=== PATIENT | male | born 1955 | race Caucasian/White ===

== ENCOUNTER → 2016-10-02 | Outpatient (CLI) | payer OTHER ==
[2016-10-02 10:31] LABS: Blood Urea Nitrogen 18 mg/dL (9-20); Non-African American GFR(MDRD) >60 (>60 ml/min/1.73 sqM)
--- NOTE | 2016-10-02 11:44 | CT ---
EXAMINATION TYPE: CT urogram wo/w con DATE OF EXAM: 10/02/2016 COMPARISON: NONE HISTORY: 61-year-old male complains of known renal stones and abnormal cytology results. TECHNIQUE: Contiguous axial scanning of the abdomen and pelvis performed without and with IV Contrast , patient injected with 100 mL of Omnipaque 300. Delayed images through the kidneys and bladder were obtained. Coronal/sagittal reconstructions performed. CT DLP: 3244 mGycm Automated exposure control for dose reduction was used. FINDINGS: The heart is normal size without pericardial effusion. Lung bases clear without pleural effusion. Scattered hypodense lesions within the liver too small for accurate CT characterization, likely cysts . Portal venous system is patent. No biliary ductal dilatation. There is a 1.2 cm hypodense lesion in the pancreatic head/uncinate process region. Gallbladder, adrenal glands, clean within normal limits. Within the left kidney, there is a 1.2 cm nonobstructive calculus in the upper pole. Both kidneys show numerous hypodense lesions, many of which are too small for accurate CT characteriz ation. On the right, the larger lesions measure up to 2.1 cm in the anterior midpole and 2.7 cm in the lower pole. These are compatible with cysts. On the left, the largest measures 2.2 cm posterolateral midpole with some thin layering calcification but otherwise with attenuation compatible with a cyst. No suspicious renal mass is identified. No hydronephrosis. There is symmetric excretion of contrast from both kidneys. No suspicious filling defects within the collecting systems or along the course of either ureter. There is opacification of the posterior three quarters of the bladder without suspicious filling defe ct identified No dilated small bowel, free fluid, or free air. The appendix is visualized. Mild stool in the right hemicolon. No pericolonic inflammatory change. No mesenteric or retroperitoneal lymphadenopathy. Few scattered prominent but nonenlarged mesenteric lymph nodes are noted measuring up to 5 mm. Mild to moderate atherosclerotic calcifications within the abdominal aorta with ectasia of the upper abdominal aorta at 2.5 cm. Moderate sized fatty umbilical hernia. Prostate gland mildly enlarged at 4.5 cm wide with central calcifications. No abnormal fluid collecti on in the pelvis or pelvic lymphadenopathy. Bones: Degenerative changes at the hips and within the mid to lower lumbar spine. No osseous destruct erickson process. IMPRESSION: 1. A 1.2 CM NONOBSTRUCTIVE LEFT UPPER POLE RENAL CALCULUS. NO HYDRONEPHROSIS ON EITHER SIDE. 2. BILATERAL HYPODENSE RENAL LESIONS. THE LARGEST ARE COMPATIBLE WITH CYSTS WITH A B[place]NIA[place] CLASS II C YST AT THE LEFT MIDPOLE. MANY OF THE HYPODENSE LESIONS ARE TOO SMALL FOR ACCURATE CT CHARACTERIZATIO N AND ALSO REPRESENT CYSTS. NO SUSPICIOUS RENAL LESION SEEN. 3. NO SUSPICIOUS FILLING DEFECT SEEN ALONG EITHER COLLECTING SYSTEM OR URETERS. 4. A VAGUE 1.2 CM HYPODENSITY IN THE PANCREATIC HEAD/UNCINATE PROCESS REGION MAY BE CYSTIC. RECOMMEND 6 MONTH FOLLOW-UP PANCREAS MRI TO FURTHER EVALUATE. 5. MODERATE-SIZED PERIUMBILICAL HERNIA AND MILD PROSTATOMEGALY.
== END | disposition home or self-care (01) ==
LOC: RADCTMAIN 09:58
PROVIDERS: ATTEND Urology
DX: N20.0 Calculus of kidney (principal); R82.99 Other abnormal findings in urine; K42.9 Umbilical hernia without obstruction or gangrene; N40.0 Benign prostatic hyperplasia without lower urinary tract symptoms; R93.3 Abnormal findings on diagnostic imaging of other parts of digestive tract
CPT/HCPCS: 82565; 84520; 74178; 74400; Q9967

== ENCOUNTER → 2016-10-09 | Outpatient (CLI) | payer OTHER ==
--- NOTE | 2016-10-09 15:35 | XR ---
EXAMINATION TYPE: XR KUB DATE OF EXAM: 10/09/2016 COMPARISON: CT 10/02/2016 HISTORY: Pain TECHNIQUE: One view abdominal series FINDINGS: Stable 1.2 cm left upper pole renal calculus. Punctate 1 mm calcification lower pole left kidney. Right kidney obscured by overlying bowel gas. Bowel gas pattern nonspecific with no obstruction. Hypertrophic change of the spine. No suspicious calcifications in the pelvis. IMPRESSION: 1. Stable left-sided nephrolithiasis.
== END | disposition home or self-care (01) ==
LOC: RADXRMAIN 15:02
PROVIDERS: ATTEND Urology
DX: N20.0 Calculus of kidney (principal)
CPT/HCPCS: 74000

== ENCOUNTER → 2018-07-08 | Outpatient (CLI) | payer OTHER ==
--- NOTE | 2018-07-08 08:22 | CT ---
EXAMINATION TYPE: CT urogram wo/w con DATE OF EXAM: 07/08/2018 COMPARISON: 10/02/2016 HISTORY: 63-year-old male Calculus of kidney. Left renal stone. TECHNIQUE: Contiguous axial scanning of the abdomen and pelvis performed without and with IV Contrast , patient injected with 100 mL of Isovue 300. Delayed images through the kidneys and bladder were obt ained. Coronal/sagittal reconstructions performed. 3-D reconstructions generated on a dedicated [employer] workstation. CT DLP: 2665 mGycm Automated exposure control for dose reduction was used. FINDINGS: Heart normal size without pericardial effusion. Lung bases clear without pleural effusion. Ectasia of the lower descending thoracic aorta at 2.9 cm. Scattered mild to moderate atherosclerotic calcifications throughout the abdominal aorta and iliac ar teries. A few scattered subcentimeter hypodensities within the liver are unchanged, suggestive of cysts. Port al venous system is patent. No biliary ductal dilatation. Gallbladder, adrenal glands, and spleen appear within normal limits. 7 mm hypodensity in the uncinate process of the pancreas appear smaller as compared to 1.2 cm, previo usly suggesting a benign etiology. 1.3 cm nonobstructive left upper pole renal calculus with an adjacent punctate 3 mm calculus. Numerous scattered subcentimeter hypodensities in both kidneys are essentially unchanged from 2017 gates ggesting benign cortical cysts. Larger cysts measuring 2.5 and 2.3 cm in the right mid and lower pole , respectively, are relatively stable. On the left, a 2.6 cm lateral to lower pole cyst is also relat ively stable and again contain small amount of layering calcification. No suspicious renal lesion seen. Symmetric uptake and excretion of contrast from both kidneys. No hydronephrosis. There is some tortuosity to the proximal ureters but no suspicious filling defects seen within the re nal collecting systems or along the ureters. The posterior half of the bladder opacifies with contrast on the 10 minute delays. No suspicious urot helial based lesion is seen. No mesenteric or retroperitoneal lymphadenopathy. No dilated small bowel, free fluid, or free air. Normal appendix. Mild stool burden. Prostate gland is mildly enlarged at 4.7 cm wide, measured at 4.5 cm, previously. Some central prosta tic calcifications are demonstrated. No abnormal fluid collection in the pelvis or pelvic lymphadenop athy. Bones: Advanced degenerative disc disease L4-L5. Facet arthropathy lower lumbar spine. IMPRESSION: 1. STABLE 1.3 CM LEFT UPPER POLE RENAL CALCULUS. THERE IS AN ADJACENT PUNCTATE CALCULUS WHICH IS ALSO NONOBSTRUCTIVE. 2. NUMEROUS BILATERAL BENIGN RENAL CYSTS ALL LARGELY STABLE FROM 2017. NO SUSPICIOUS RENAL LESION. 3. NO HYDRONEPHROSIS, OBSTRUCTIVE UROPATHY, or suspicious filling defect in the renal collecting syst em or ureters. 4. Moderate-sized fatty umbilical hernia and mild prostatomegaly (4.7 cm wide) again noted.
== END | disposition home or self-care (01) ==
LOC: RADCTMAIN 06:23
PROVIDERS: ATTEND Family Medicine
DX: N20.0 Calculus of kidney (principal); N28.1 Cyst of kidney, acquired; N40.0 Benign prostatic hyperplasia without lower urinary tract symptoms; K42.9 Umbilical hernia without obstruction or gangrene
CPT/HCPCS: 74178; 74400; Q9967

== ENCOUNTER → 2018-08-17 | Outpatient (CLI) | payer OTHER ==
[2018-08-17 17:34] LABS: Basophils % (A) 0 %; Eosinophils # (A) 0.1 k/uL (0-0.7); Eosinophils % (A) 2 %; HCT 42.1 % (39.0-53.0); HGB 14.3 gm/dL (13.0-17.5); Lymphocytes % (A) 26 %; MCH 30.1 pg (25.0-35.0); MCHC 34.1 g/dL (31.0-37.0); MCV 88.2 fL (80.0-100.0); Mean Platelet Volume 7.3; Monocytes # (A) 0.4 k/uL (0-1.0); Monocytes % (A) 5 %; Neutrophils # (A) 4.9 k/uL (1.3-7.7); Neutrophils % (A) 64 %; Platelet Count 243 k/uL (150-450); RBC 4.77 m/uL (4.30-5.90); RDW 14.1 % (11.5-15.5); WBC 7.6 k/uL (3.8-10.6)
[2018-08-17 17:36] LABS: Anion Gap 6 mmol/L; Blood Urea Nitrogen 19 mg/dL (9-20); Calcium 9.4 mg/dL (8.4-10.2); Carbon Dioxide 27 mmol/L (22-30); Chloride 105 mmol/L (98-107); Glucose 82 mg/dL (74-99); Potassium 4.1 mmol/L (3.5-5.1); Sodium 138 mmol/L (137-145)
== END | disposition home or self-care (01) ==
LOC: LABPAT 16:52
PROVIDERS: ATTEND Urology
DX: Z01.812 Encounter for preprocedural laboratory examination (principal); N20.0 Calculus of kidney
CPT/HCPCS: 36415; 80048; 85025

== ENCOUNTER → 2018-08-23 | Day surgery (SDC) | payer OTHER ==
[2018-08-19 17:21] VITALS: BMI 29.5
--- NOTE | 2018-08-21 08:48 | P.GSHP ---
History of Present Illness H&P Date: 08/19/18 Chief Complaint: Left flank pain The patient is a 63-year-old white male with a history of urolithiasis who presents with a two-month history of left flank and left lower abdominal discomfort. A computed tomography scan shows a 13 mm left upper pole renal calculus. He also has bilateral renal cysts. Treatment options for the renal calculus include observation, extracorporeal shockwave lithotripsy (ESWL), and ureteroscopy with laser lithotripsy. The pros and cons of each approach were reviewed in detail, and he has elected to undergo ESWL. - Constitutional Constitutional: Denies chills, Denies fever - Gastrointestinal Gastrointestinal: Reports nausea, Denies vomiting - Genitourinary (Female) Genitourinary: Reports flank pain, Reports hematuria, Reports kidney stones Past Medical History Past Medical History: Hyperlipidemia, Hypertension Additional Past Medical History / Comment(s): Kidney Stones, Testicular Cancer Past Surgical History: Hernia Repair Additional Past Surgical History / Comment(s): Colonoscopy, Cystoscopy, Left Orchiectomy Smoking Status: Unknown if ever smoked - Past Family History Mother Family Medical History: Cancer, Thyroid Disorder Medications and Allergies Home Medications Medication Instructions Recorded Confirmed Type Aspirin [Adult Low Dose Aspirin EC] 81 mg PO DAILY 08/19/18 08/19/18 History Lisinopril-Hctz 10-12.5 mg 1 tab PO DAILY 08/19/18 08/19/18 History [Zestoretic 10-12.5] Allergies Allergy/AdvReac Type Severity Reaction Status Date / Time No Known Allergies Allergy Verified 08/19/18 17:04 Surgical - Exam - General well developed, well nourished, no distress - Neck no masses, trachea midline - Respiratory normal respiratory effort, clear to auscultation - Cardiovascular Rhythm: regular Abnormal Heart Sounds: no systolic murmur, no diastolic murmur, no rub, no S3 Gallop, no S4 Gallop, no click, no other - Abdomen Abdomen: soft, non tender, no guarding, no rigid, no rebound Results - Imaging CT scan - abdomen: report reviewed, image reviewed Assessment and Plan (1) Calculus of kidney Status: Acute Code(s): N20.0 - CALCULUS OF KIDNEY SNOMED Code(s): 36398089 Plan: I discussed with the patient the treatment of the calculus with ESWL. I explained the possible need for repeat ESWL or alternative treatment in the event of treatment failure or incomplete fragmentation. I discussed the risks of ESWL, including anesthesia, collateral damage to other organs, and [place]str[place]. The possible need for a secondary intervention such as a stent or ureteroscopy was discussed. The patient expressed an understanding of the procedure and risks including but not limited to bleeding, infection, obstruction, and rarely injury to other organs such as the liver or spleen. The patient was advised that renal contusions are common, resulting in hematuria. The possibility of a perinephric hematoma was also discussed.
[~2018-08-23] MED LIST: GLYCOPYRROLATE 0.2 MG/ML 2 ML VIAL ONE; KETAMINE 10 MG/ML 20 ML VIAL ONE; LACTATED RINGERS 1,000 ML IV SCH; LIDOCAINE 1% 20 ML VIAL (10MG/ML) FOR IV START INTRADERMA ONE; LIDOCAINE 1% INJ 10MG/ML (20 ML MDV) ONE; MIDAZOLAM 2 MG/2 ML VIAL ONE; PROPOFOL 10 MG/ML 20 ML VIAL IV ONE; Pre Op ABX Message 1 EACH MISC MISCELLANE ONE; fentaNYL (PF) 50 MCG/ML 2 ML AMP ONE
[2018-08-23 06:37] VITALS: PULSE 73; TEMP 98.2
--- NOTE | 2018-08-23 08:12 | XR ---
KUB HISTORY: Preop lithotripsy Single frontal view KUB submitted and correlated to prior 10/09/2016 Calculus over the left kidney in the upper pole level measures approximately 15 mm. Degenerative disc changes in the visualized spine. No evident pneumoperitoneum or bowel obstruction. IMPRESSION: Left-sided nephrolithiasis.
--- NOTE | 2018-08-23 08:21 | P.OP ---
Date of Procedure: 08/23/18 Preoperative Diagnosis: Left renal calculus Postoperative Diagnosis: Same Procedure(s) Performed: Left extracorporeal shockwave lithotripsy (ESWL) Anesthesia: MAC Surgeon: Urbano Almanza Estimated Blood Loss (ml): 0 IV fluids (ml): 300 Pathology: none sent Condition: stable Disposition: PACU Indications for Procedure: The patient is a 63-year-old white male with a history of urolithiasis who presents with a two-month history of left flank and left lower abdominal discomfort. A computed tomography scan shows a 13 mm left upper pole renal calculus. He also has bilateral renal cysts. Treatment options for the renal calculus include observation, extracorporeal shockwave lithotripsy (ESWL), and ureteroscopy with laser lithotripsy. The pros and cons of each approach were reviewed in detail, and he has elected to undergo ESWL. Operative Findings: Fragmentation of the calculus occurs. Description of Procedure: The patient was taken to the operating room and placed on the Dornier TabSquare Delta II lithotripter in the supine position. The calculus was seen on biplanar fluoroscopy. Once the patient was properly positioned and sedated, lithotripsy was performed. The energy level was gradually increased per protocol, to an energy level of 5. After 200 shocks were administered, a 2 minute pause was instituted per protocol. A total of 2500 shocks were given at a rate of 80 shocks per minute. Fluoroscopy was utilized at a minimum to ensure proper positioning and determine the treatment status. The calculus changed in appearance, consistent with fragmentation. The patient tolerated the procedure well was taken to the recovery room in stable condition. Instructions were given to strain the urine, and the patient will follow-up within one week.
[2018-08-23 08:28] VITALS: RESP 17
[2018-08-23 08:38] VITALS: BP 128/67
== END | disposition home or self-care (01) ==
LOC: ORWHC2ENDO 06:20
PROVIDERS: ATTEND Urology
DX: N20.0 Calculus of kidney (principal); N28.1 Cyst of kidney, acquired; E78.5 Hyperlipidemia, unspecified; I10 Essential (primary) hypertension; Z87.442 Personal history of urinary calculi; Z85.47 Personal history of malignant neoplasm of testis; Z90.79 Acquired absence of other genital organ(s); Z79.82 Long term (current) use of aspirin; Z79.899 Other long term (current) drug therapy
CPT/HCPCS: 74018; 50590; J2250; J2001; J3010; J2704

== ENCOUNTER 2018-08-25 13:55 | Inpatient (IN) | payer OTHER ==
[2018-08-25 14:59] LABS: Basophils % (A) 0 %; Eosinophils # (A) 0.1 k/uL (0-0.7); Eosinophils % (A) 1 %; HCT 41.4 % (39.0-53.0); HGB 14.3 gm/dL (13.0-17.5); Lymphocytes # (A) 0.7 k/uL (1.0-4.8); Lymphocytes % (A) 5 %; MCH 30.3 pg (25.0-35.0); MCHC 34.6 g/dL (31.0-37.0); MCV 87.7 fL (80.0-100.0); Mean Platelet Volume 7.3; Monocytes # (A) 0.4 k/uL (0-1.0); Monocytes % (A) 3 %; Neutrophils % (A) 91 %; Platelet Count 208 k/uL (150-450); RBC 4.72 m/uL (4.30-5.90); RDW 13.7 % (11.5-15.5); WBC 13.2 k/uL (3.8-10.6)
[2018-08-25] MEDS ORDERED: SODIUM CHLORIDE 0.9% 1,000 ML IV STA ×3 (15:03→16:23)
[2018-08-25] MEDS ORDERED: ONDANSETRON 4 MG/2 ML VIAL IVP STA (15:03)
[2018-08-25] MEDS ORDERED: KETOROLAC 30 MG/ML 1 ML VIAL IVP STA (15:03)
[2018-08-25] MEDS ORDERED: SODIUM CHLORIDE 0.9% 500 ML 500 ML IV STA (15:03)
[2018-08-25] MEDS ORDERED: MORPHINE SULFATE 4 MG/ML SYRINGE IV STA (15:03)
--- NOTE | 2018-08-25 15:06 | ED ---
Abdominal Pain HPI - General Chief Complaint: Abdominal Pain Stated Complaint: Kidney stone Time Seen by Provider: 08/25/18 15:02 Source: patient, RN notes reviewed, old records reviewed Mode of arrival: ambulatory Limitations: no limitations - History of Present Illness Initial Comments: This is a 63-year-old male the ER for evaluation. States presenting for evaluation of left ear pain left flank pain severe with nausea vomiting intractable. Patient had outpatient studies was told to come the emergency room for worsening of symptoms on outpatient basis. Patient himself is denying any acute fevers or abdominal pain. Is able to urinate currently. Patient had lithotripsy for significant fragment stone in his left ureter, has not currently passed any kidney stone. Per his knowledge. Patient is taking pain medication at home unable to keep any medication down MD Complaint: flank pain (() -: days(s) Location: LLQ, suprapubic, L flank Radiation: L flank, back Migration to: suprapubic Severity: severe Severity scale (1-10): 10 Quality: stabbing, sharp Consistency: constant Improves With: nothing Worsens With: nothing Associated Symptoms: nausea, vomiting Treatments Prior to Arrival: prescription analgesics - Related Data Home Medications Medication Instructions Recorded Confirmed Aspirin [Adult Low Dose Aspirin EC] 81 mg PO DAILY 08/19/18 08/25/18 Lisinopril-Hctz 10-12.5 mg 1 tab PO DAILY 08/19/18 08/25/18 [Zestoretic 10-12.5] HYDROcodone/APAP 5-325MG [Upperco 1 - 2 tab PO Q4H PRN 08/25/18 08/25/18 5-325] Previous Rx's Medication Instructions Recorded Tamsulosin [Flomax] 0.4 mg PO DAILY #30 cap 08/23/18 Allergies Allergy/AdvReac Type Severity Reaction Status Date / Time No Known Allergies Allergy Verified 08/25/18 15:22 Review of Systems ROS Statement: Those systems with pertinent positive or pertinent negative responses have been documented in the HPI. ROS Other: All systems not noted in ROS Statement are negative. Past Medical History Past Medical History: Cancer, Hyperlipidemia, Hypertension Additional Past Medical History / Comment(s): KIDNEY STONE, TESTICULAR CANCER History of Any Multi-Drug Resistant Organisms: None Reported Past Surgical History: Hernia Repair Additional Past Surgical History / Comment(s): LITHOTRIPSY Past Psychological History: No Psychological Hx Reported Smoking Status: Never smoker Past Alcohol Use History: Occasional Past Drug Use History: None Reported General Exam Limitations: no limitations General appearance: alert, in no apparent distress Head exam: Present: atraumatic, normocephalic, normal inspection Eye exam: Present: normal appearance, PERRL, EOMI. Absent: scleral icterus, conjunctival injection, periorbital swelling ENT exam: Present: normal exam, mucous membranes moist Neck exam: Present: normal inspection. Absent: tenderness, meningismus, lymph adenopathy Respiratory exam: Present: normal lung sounds bilaterally. Absent: respiratory distress, wheezes, rales, rhonchi, stridor Cardiovascular Exam: Present: regular rate, normal rhythm, normal heart sounds. Absent: systolic murmur, diastolic murmur, rubs, gallop, clicks GI/Abdominal exam: Present: soft, normal bowel sounds. Absent: distended, tenderness, guarding, rebound, rigid Extremities exam: Present: normal inspection, full ROM, normal capillary refill. Absent: tenderness, pedal edema, joint swelling, calf tenderness Back exam: Present: normal inspection Neurological exam: Present: alert, oriented X3, CN II-XII intact Psychiatric exam: Present: normal affect, normal mood Skin exam: Present: warm, dry, intact, normal color. Absent: rash Course Vital Signs 08/25/18 14:23 Temperature 98.2 F Pulse Rate 66 Respiratory 16 Rate Blood Pressure 156/87 O2 Sat by Pulse 99 Oximetry - Reevaluation(s) Reevaluation #1: 08/25/18 16:21 Record and prior outpatient studies are reviewed Reevaluation #2: 08/25/18 16:21 Patient does have decent pain control currently, no nausea vomiting Medical Decision Making - Medical Decision Making 50 female the ER with known history of kidney stones will admit for kidney stones pain control and urology evaluation - Lab Data Result diagrams: 08/25/18 14:44 08/25/18 14:44 Lab Results 08/25/18 08/25/18 08/25/18 Range/Units 14:44 14:44 14:44 WBC 13.2 H (3.8-10.6) k/uL RBC 4.72 (4.30-5.90) m/uL Hgb 14.3 (13.0-17.5) gm/dL Hct 41.4 (39.0-53.0) % MCV 87.7 (80.0-100.0) fL MCH 30.3 (25.0-35.0) pg MCHC 34.6 (31.0-37.0) g/dL RDW 13.7 (11.5-15.5) % Plt Count 208 (150-450) k/uL Neutrophils % 91 % Lymphocytes % 5 % Monocytes % 3 % Eosinophils % 1 % Basophils % 0 % Neutrophils # 12.0 H (1.3-7.7) k/uL Lymphocytes # 0.7 L (1.0-4.8) k/uL Monocytes # 0.4 (0-1.0) k/uL Eosinophils # 0.1 (0-0.7) k/uL Basophils # 0.0 (0-0.2) k/uL Sodium 137 (137-145) mmol/L Potassium 4.9 (3.5-5.1) mmol/L Chloride 100 (98-107) mmol/L Carbon Dioxide 28 (22-30) mmol/L Anion Gap 9 mmol/L BUN 18 (9-20) mg/dL Creatinine 1.09 (0.66-1.25) mg/dL Est GFR (CKD-EPI)AfAm 83 (>60 ml/min/1.73 sqM) Est GFR (CKD-EPI)NonAf 72 (>60 ml/min/1.73 sqM) Glucose 120 H (74-99) mg/dL Plasma Lactic Acid Michael 2.6 H* (0.7-2.0) mmol/L Calcium 9.5 (8.4-10.2) mg/dL Total Bilirubin 0.8 (0.2-1.3) mg/dL AST 16 L (17-59) U/L ALT 20 L (21-72) U/L Alkaline Phosphatase 55 (38-126) U/L Total Protein 6.9 (6.3-8.2) g/dL Albumin 4.2 (3.5-5.0) g/dL Amylase 63 (30-110) U/L Lipase 84 (23-300) U/L Urine Color Urine Appearance (Clear) Urine pH (5.0-8.0) Ur Specific [place] (1.001-1.035) Urine Protein (Negative) Urine Glucose (UA) (Negative) Urine Ketones (Negative) Urine Blood (Negative) Urine Nitrite (Negative) Urine Bilirubin (Negative) Urine Urobilinogen (<2.0) mg/dL Ur Leukocyte Esterase (Negative) Urine RBC (0-5) /hpf Urine WBC (0-5) /hpf Urine Mucus (None) /hpf 08/25/18 Range/Units 15:30 WBC (3.8-10.6) k/uL RBC (4.30-5.90) m/uL Hgb (13.0-17.5) gm/dL Hct (39.0-53.0) % MCV (80.0-100.0) fL MCH (25.0-35.0) pg MCHC (31.0-37.0) g/dL RDW (11.5-15.5) % Plt Count (150-450) k/uL Neutrophils % % Lymphocytes % % Monocytes % % Eosinophils % % Basophils % % Neutrophils # (1.3-7.7) k/uL Lymphocytes # (1.0-4.8) k/uL Monocytes # (0-1.0) k/uL Eosinophils # (0-0.7) k/uL Basophils # (0-0.2) k/uL Sodium (137-145) mmol/L Potassium (3.5-5.1) mmol/L Chloride (98-107) mmol/L Carbon Dioxide (22-30) mmol/L Anion Gap mmol/L BUN (9-20) mg/dL Creatinine (0.66-1.25) mg/dL Est GFR (CKD-EPI)AfAm (>60 ml/min/1.73 sqM) Est GFR (CKD-EPI)NonAf (>60 ml/min/1.73 sqM) Glucose (74-99) mg/dL Plasma Lactic Acid Michael (0.7-2.0) mmol/L Calcium (8.4-10.2) mg/dL Total Bilirubin (0.2-1.3) mg/dL AST (17-59) U/L ALT (21-72) U/L Alkaline Phosphatase (38-126) U/L Total Protein (6.3-8.2) g/dL Albumin (3.5-5.0) g/dL Amylase (30-110) U/L Lipase (23-300) U/L Urine Color Yellow Urine Appearance Clear (Clear) Urine pH 7.0 (5.0-8.0) Ur Specific [place] 1.018 (1.001-1.035) Urine Protein Trace H (Negative) Urine Glucose (UA) Negative (Negative) Urine Ketones 1+ H (Negative) Urine Blood Moderate H (Negative) Urine Nitrite Negative (Negative) Urine Bilirubin Negative (Negative) Urine Urobilinogen <2.0 (<2.0) mg/dL Ur Leukocyte Esterase Negative (Negative) Urine RBC >182 H (0-5) /hpf Urine WBC 11 H (0-5) /hpf Urine Mucus Rare H (None) /hpf - Radiology Data Radiology results: report reviewed (Ultrasound of kidneys and bladder and), image reviewed Disposition Clinical Impression: Calculus of kidney, Left ureteral stone, Renal colic on left side Disposition: ADMITTED IP TO THIS [facility] Condition: Good Is patient prescribed a controlled substance at d/c from ED?: No Referrals: Solo Villa MD [Primary Care Provider] - 1-2 days
[2018-08-25 15:09] LABS: Albumin 4.2 g/dL (3.5-5.0); Calcium 9.5 mg/dL (8.4-10.2); Potassium 4.9 mmol/L (3.5-5.1); Total Bilirubin 0.8 mg/dL (0.2-1.3); Total Protein 6.9 g/dL (6.3-8.2)
[2018-08-25 16:11] LABS: Appearance,Urine Clear (Clear); Bilirubin,Urine Negative (Negative); Blood,Urine Moderate (Negative); Color,Urine Yellow; Glucose,Urine (UA) Negative (Negative); Ketones,Urine 1+ (Negative); Leukocyte Esterase,Urine Negative (Negative); Mucus,Urine Rare /hpf; Nitrite,Urine Negative (Negative); Protein,Urine Trace (Negative); RBC,Urine >182 /hpf (0-5); Specific Gravity,Urine 1.018 (1.001-1.035); Urobilinogen,Urine <2.0 mg/dL (<2.0); WBC,Urine 11 /hpf (0-5)
[2018-08-25] MEDS ORDERED: ONDANSETRON 4 MG/2 ML VIAL IVP PRN (16:23)
[2018-08-25] MEDS ORDERED: TAMSULOSIN 0.4 MG CAP.ER.24H PO STA (16:23)
[2018-08-25] MEDS ORDERED: MORPHINE SULFATE 4 MG/ML SYRINGE IVP PRN (16:23)
--- NOTE | 2018-08-25 16:58 | US ---
EXAMINATION TYPE: US renals and bladder DATE OF EXAM: 08/25/2018 COMPARISON: CT CLINICAL HISTORY: Pain. Left flank and pelvic pain today; patient is post lithotripsy Thursday EXAM MEASUREMENTS: Right Kidney: 11.6 x 6.5 x 5.1 cm Left Kidney: 12.6 x 7.6 x 7.3 cm Post Void Residual Volume: not assessed on EC patient Right Kidney: multiple renal cysts with largest at inferior cortex = 1.7 x 2.8 x 2.1cm; mid pole hype rechoic parallel linear foci may be calcified vessel gale Left Kidney: mild hydronephrosis; multiple hyperechoic foci with some having posterior shadowing note d throughout with largest in upper pole = 1.1 x 0.9 x 0.9cm; couple of renal cysts are seen with larg er imaged mid cortex = 2.3x 2.5 x 2.2cm. Bladder: wnl Bilateral Jets seen: only right ureteral jet was seen within 3 minute observation . IMPRESSION: Left renal calculi. Left side mild hydronephrosis. Renal cysts. No ureteral jet is seen o n the left side that is suggestive of acute obstruction.
[2018-08-25 19:50] VITALS: RESP 18
[2018-08-25 20:14] VITALS: BMI 29.5
[2018-08-26 07:56] VITALS: BP 174/91; PULSE 85; TEMP 98.8
--- NOTE | 2018-08-26 08:17 | XR ---
KUB HISTORY: Hematuria, left-sided kidney stone KUB on 2 images correlated to prior KUB dated 08/23/2018, abdomen 08/25/2018 The left-sided kidney stone fragments are noted and partially obscured by overlying bowel gas but sim ilar to previous exam. The calcifications present along the proximal left ureter are no longer seen. There is no evident pneumoperitoneum. Lung bases are clear. There is an air-fluid level present in th e midabdomen. Mild spinal curvature again noted, there are degenerative disc changes the visualized s pine. IMPRESSION: Post lithotripsy findings.
[2018-08-26] MEDS ORDERED: TAMSULOSIN 0.4 MG CAP.ER.24H PO SCH (08:30)
[2018-08-26] MEDS ORDERED: LISINOPRIL-HCTZ 10-12.5 MG 1 EACH TAB PO SCH (09:00)
[2018-08-26] MEDS ORDERED: ASPIRIN 81 MG PO SCH (09:00)
--- NOTE | 2018-08-26 10:25 | P.GSCN ---
History of Present Illness Consult date: 08/26/18 Reason for Consult: Left ureteral calculi Requesting physician: Anthony Liu History of present illness: The patient is a 63-year-old white male with a history of urolithiasis who presents with a two-month history of left flank and left lower abdominal discomfort. A computed tomography scan shows a 13 mm left upper pole renal calculus. He also has bilateral renal cysts. Treatment options for the renal calculus include observation, extracorporeal shockwave lithotripsy (ESWL), and ureteroscopy with laser lithotripsy. He underwent ESWL on 08/23/2018. The calculus fragmented very well. Yesterday, he experienced severe left flank pain associated with nausea and vomiting. He presented to the emergency room and was found to have Steinstrasse. He was admitted for symptomatic control. He is now asymptomatic. Review of Systems - Constitutional Denies chills, Denies fever - Gastrointestinal Reports nausea, Reports vomiting - Genitourinary Reports flank pain, Reports kidney stones Past Medical History Past Medical History: Cancer, Hypertension Additional Past Medical History / Comment(s): KIDNEY STONE, TESTICULAR CANCER History of Any Multi-Drug Resistant Organisms: None Reported Past Surgical History: Hernia Repair Additional Past Surgical History / Comment(s): LITHOTRIPSY, left testicle removed. Past Anesthesia/Blood Transfusion Reactions: No Reported Reaction Past Psychological History: No Psychological Hx Reported Smoking Status: Never smoker Past Alcohol Use History: Occasional Past Drug Use History: None Reported - Past Family History Mother Family Medical History: Congestive Heart Failure (CHF) Father Family Medical History: Diabetes Mellitus, Hypertension Medications and Allergies Home Medications Medication Instructions Recorded Confirmed Type Aspirin [Adult Low Dose Aspirin EC] 81 mg PO DAILY 08/19/18 08/25/18 History Lisinopril-Hctz 10-12.5 mg 1 tab PO DAILY 08/19/18 08/25/18 History [Zestoretic 10-12.5] Tamsulosin [Flomax] 0.4 mg PO DAILY #30 cap 08/23/18 08/25/18 Rx HYDROcodone/APAP 5-325MG [[place] 1 - 2 tab PO Q4H PRN 08/25/18 08/25/18 History 5-325] Ondansetron Odt [Zofran Odt] 4 mg PO Q8HR PRN #10 tab 08/26/18 Rx Allergies Allergy/AdvReac Type Severity Reaction Status Date / Time No Known Allergies Allergy Verified 08/25/18 15:22 Surgical - Exam Vital Signs Temp Pulse Resp BP Pulse Ox 98.2 F 66 16 156/87 99 08/25/18 14:23 08/25/18 14:23 08/25/18 14:23 08/25/18 14:23 08/25/18 14:23 - General well developed, well nourished, no distress - Respiratory normal respiratory effort - Abdomen Abdomen: soft, tender (Mild left-sided tenderness), no guarding, no rigid, no rebound, no distended - Psychiatric oriented to time, oriented to person, oriented to place, speech is normal, memory intact Results - Labs 08/25/18 14:44 08/25/18 14:44 Abnormal Lab Results - Last 24 Hours (Table) 08/25/18 08/25/18 08/25/18 Range/Units 14:44 14:44 14:44 WBC 13.2 H (3.8-10.6) k/uL Neutrophils # 12.0 H (1.3-7.7) k/uL Lymphocytes # 0.7 L (1.0-4.8) k/uL Glucose 120 H (74-99) mg/dL Plasma Lactic Acid Michael 2.6 H* (0.7-2.0) mmol/L AST 16 L (17-59) U/L ALT 20 L (21-72) U/L Urine Protein (Negative) Urine Ketones (Negative) Urine Blood (Negative) Urine RBC (0-5) /hpf Urine WBC (0-5) /hpf Urine Mucus (None) /hpf 08/25/18 Range/Units 15:30 WBC (3.8-10.6) k/uL Neutrophils # (1.3-7.7) k/uL Lymphocytes # (1.0-4.8) k/uL Glucose (74-99) mg/dL Plasma Lactic Acid Michael (0.7-2.0) mmol/L AST (17-59) U/L ALT (21-72) U/L Urine Protein Trace H (Negative) Urine Ketones 1+ H (Negative) Urine Blood Moderate H (Negative) Urine RBC >182 H (0-5) /hpf Urine WBC 11 H (0-5) /hpf Urine Mucus Rare H (None) /hpf Microbiology - Last 24 Hours (Table) 08/25/18 15:30 Urine Culture - Preliminary Urine,Clean Catch Diabetes panel 08/25/18 Range/Units 14:44 Sodium 137 (137-145) mmol/L Potassium 4.9 (3.5-5.1) mmol/L Chloride 100 (98-107) mmol/L Carbon Dioxide 28 (22-30) mmol/L BUN 18 (9-20) mg/dL Creatinine 1.09 (0.66-1.25) mg/dL Glucose 120 H (74-99) mg/dL Calcium 9.5 (8.4-10.2) mg/dL AST 16 L (17-59) U/L ALT 20 L (21-72) U/L Alkaline Phosphatase 55 (38-126) U/L Total Protein 6.9 (6.3-8.2) g/dL Albumin 4.2 (3.5-5.0) g/dL Calcium panel 08/25/18 Range/Units 14:44 Calcium 9.5 (8.4-10.2) mg/dL Albumin 4.2 (3.5-5.0) g/dL Pituitary panel 08/25/18 Range/Units 14:44 Sodium 137 (137-145) mmol/L Potassium 4.9 (3.5-5.1) mmol/L Chloride 100 (98-107) mmol/L Carbon Dioxide 28 (22-30) mmol/L BUN 18 (9-20) mg/dL Creatinine 1.09 (0.66-1.25) mg/dL Glucose 120 H (74-99) mg/dL Calcium 9.5 (8.4-10.2) mg/dL Adrenal panel 08/25/18 Range/Units 14:44 Sodium 137 (137-145) mmol/L Potassium 4.9 (3.5-5.1) mmol/L Chloride 100 (98-107) mmol/L Carbon Dioxide 28 (22-30) mmol/L BUN 18 (9-20) mg/dL Creatinine 1.09 (0.66-1.25) mg/dL Glucose 120 H (74-99) mg/dL Calcium 9.5 (8.4-10.2) mg/dL Total Bilirubin 0.8 (0.2-1.3) mg/dL AST 16 L (17-59) U/L ALT 20 L (21-72) U/L Alkaline Phosphatase 55 (38-126) U/L Total Protein 6.9 (6.3-8.2) g/dL Albumin 4.2 (3.5-5.0) g/dL - Imaging Abdominal x-ray: report reviewed, image reviewed US - kidney/bladder: report reviewed Assessment and Plan (1) Left ureteral stone Current Visit: Yes Status: Acute Code(s): N20.1 - CALCULUS OF URETER SNOMED Code(s): 06478026 Plan: The patient's pain is due to Steinstrasse. A KUB x-ray this morning is unchanged compared to the x-ray done yesterday. Multiple calculus fragments are seen within the mid ureter. I explained to the patient that this usually resolves spontaneously, though I offered to perform ureteroscopy to remove the obstructing calculi. Given that he is currently asymptomatic, he has elected to be discharged home. He will continue to take [place] as needed for pain, and Zofran was prescribed for nausea. He has an appointment to see me in the office on 08/31/2018. The KUB x-ray will be repeated at that time. If he develops intractable symptoms in the meantime, he will require ureteroscopic intervention.
--- NOTE | 2018-08-26 17:41 | HP ---
HISTORY AND PHYSICAL HISTORY AND PHYSICAL AND DISCHARGE SUMMARY: DATE OF ADMISSION: 08/25/2018 DATE OF DISCHARGE: 08/26/2018 PRESENTING COMPLAINT: Left flank pain. HISTORY OF PRESENTING COMPLAINT: This is a pleasant 63-year-old patient of Dr. Villa. Chronic stable medical conditions include hypertension. Three days ago patient underwent lithotripsy by Dr. Almanza and the patient was doing well. He was told to expect stone pieces to come out, and he was noticing that. Yesterday he went to work and he noticed severe pain in the left flank. There was no fever, no chills. Pain became uncontrolled. He presented down to the ER. The patient was started on IV fluids and admitted for the same. There was no fever, no chills. Overnight the patient got fluids. This morning he was doing much better. Dr. Almanza was consulted. REVIEW OF SYSTEMS: CONSTITUTIONAL: None. HEENT: None. RESPIRATORY: None. CARDIOVASCULAR: None. GASTROINTESTINAL: As above. GENITOURINARY: As above. MUSCULOSKELETAL: None. DERMATOLOGICAL: None. HEMATOLOGICAL: None. LYMPHATICS: None. PSYCHIATRY: None. NEUROLOGICAL: None. PAST MEDICAL HISTORY: 1. Testicular cancer. 2. Kidney stones. 3. Hypertension. PAST SURGICAL HISTORY: 1. Lithotripsy 3 days ago. 2. Left testicle removed. SOCIAL HISTORY: Does not smoke. Alcohol occasionally. . Works in manufacturing . FAMILY HISTORY: Congestive heart failure. HOME MEDICATIONS: 1. Flomax 0.4 mg p.o. daily. 2. Zestoretic 01/15.5 one tablet p.o. daily. 3. [place] 5 one to two tablets q.4 p.r.n. 4. Aspirin 81 mg p.o. daily. 5. Zofran 4 mg q.8 p.r.n. ALLERGIES: NONE. PHYSICAL EXAMINATION: VITAL SIGNS ON PRESENTATION: Temperature 98.2, pulse 66, respiration 18, blood pressure 140/75, pulse ox 97% on room air. GENERAL APPEARANCE: Average build. Lying in bed. Comfortable. EYES: Pupils equal. Conjunctivae normal. HEENT: External appearance of nose and ears normal. Oral cavity normal. NECK: JVD not raised. Mass not palpable. RESPIRATORY: Effort normal. Lungs are clear. CARDIOVASCULAR: First and second sounds normal. No edema. ABDOMEN: Soft, non-tender. Liver and spleen not palpable. LYMPHATIC: No lymph node palpable in neck or axillae. PSYCHIATRY: Alert and oriented x3. Mood and affect normal. NEUROLOGICAL: Pupils equal. Cranial nerves grossly intact. Power and sensation grossly intact. INVESTIGATIONS: White count 13.2, hemoglobin 14.3, potassium 4.9. UA showed some blood and RBC. ASSESSMENT: 1. Acute left flank pain from left kidney stones after lithotripsy, probably the small stones or grit are causing the pain. The patient is getting IV fluids, to which he has responded rather well. 2. Lactic acidosis on presentation, improved with IV fluids. 3. Leukocytosis, reactive. No clinical evidence of infection otherwise. Patient is clinically doing well after IV fluids. 4. Essential hypertension. PLAN: The patient got a burst of fluids; also got Flomax; now doing much better. He was seen by Dr. Almanza earlier. The patient will be discharged home. Care was discussed at length with the patient. DISCHARGE MEDICATIONS: 1. Aspirin 81 mg a day. 2. Zestoretic 01/15.5 one tablet p.o. daily. 3. Flomax 0.4 mg daily. 4. [place] 5 one to two tablets q.4 p.r.n. 5. Zofran 4 mg q.8 p.r.n. Follow up with Dr. Villa in 3 days. Follow up with Dr. Almanza in a week. This is both a history and physical and a discharge summary on [facility]. MMODL / IJN: [id number] /
--- NOTE | 2018-08-26 22:08 | DS ---
DISCHARGE SUMMARY DATE OF ADMISSION: 08/25/2018 DATE OF DISCHARGE: 08/26/2018 Please see my H and P for both the combined history and physical and discharge summary on this patient. MMODL / IJN: [id number] /
== END 2018-08-26 15:40 | disposition home or self-care (01) | DRG 694 ==
LOC: EC 13:55 → 1SOBS 16:23 → OBSVTOIN 08-26 10:26
PROVIDERS: ADMIT Hospitalist; ATTEND Hospitalist
DX: N20.2 Calculus of kidney with calculus of ureter (principal); E87.2 Acidosis; N28.1 Cyst of kidney, acquired; I10 Essential (primary) hypertension; E78.5 Hyperlipidemia, unspecified; D72.829 Elevated white blood cell count, unspecified; Z79.82 Long term (current) use of aspirin; Z79.899 Other long term (current) drug therapy; Z87.442 Personal history of urinary calculi; Z85.47 Personal history of malignant neoplasm of testis; Z98.890 Other specified postprocedural states; Z90.79 Acquired absence of other genital organ(s); Z82.49 Family history of ischemic heart disease and other diseases of the circulatory system; Z83.3 Family history of diabetes mellitus
CPT/HCPCS: 36415; 74018; 76770; 80053; 81001; 82150; 83605; 83690; 85025; 87086; 96361; 96374; 96375; 99285

== ENCOUNTER → 2018-08-25 | Outpatient (CLI) | payer OTHER ==
--- NOTE | 2018-08-25 12:32 | XR ---
EXAMINATION TYPE: XR abdomen 1V DATE OF EXAM: 08/25/2018 COMPARISON: 08/23/2018 HISTORY: Post lithotripsy TECHNIQUE: One view abdominal series FINDINGS: The osseous structures are intact. The bowel gas pattern is nonspecific. Hypertrophic change of the spine Right kidney: No suspicious calcifications. Left kidney: There is been interval fragmentation of the large calcification involving the left kidne y. Approximately 10 fragment seen overlying the mid to upper pole and additional 10 small fragments o verlying the lower pole. They all measure less than 5 mm. Additionally now there is a tubular area of multiple calcifications likely stacked within the mid ureter at the approximate level L3-L4 disc int erspace. Arthropathy of the hips. IMPRESSION: 1. Interval fragmentation of the large left renal calculus with at least 10 upper pole and 10 lower p ole smaller fragments measuring 5 mm or less. 2. There is a tubular area of calcification involving the mid ureter at the level L3-L4 extending inf eriorly likely representing numerous stacked fragmented calcifications within the ureter..
== END | disposition home or self-care (01) ==
LOC: RADXRMAIN 11:53
PROVIDERS: ATTEND Urology
DX: N20.0 Calculus of kidney (principal); N28.89 Other specified disorders of kidney and ureter
CPT/HCPCS: 74018

== ENCOUNTER → 2018-08-31 | Outpatient (CLI) | payer OTHER ==
--- NOTE | 2018-08-31 08:38 | XR ---
Abdomen HISTORY: Renal calculus Frontal view of the abdomen on 2 images correlated to prior KUB 08/26/2018 Degenerative disc changes are noted in the lumbar spine, arthropathy noted in the right hip. There is a calcification superimposed over the lower pole left kidney which measures approximately 5 mm, some additional smaller 1 to 2 mm calcifications are suspected, there are possibly 5 or 6 calcifications present. Suspect calcification over the upper pole the left kidney measuring approximately 3 mm possi marcos smaller adjacent calcification. IMPRESSION: Left nephrolithiasis. Post lithotripsy findings.
== END | disposition home or self-care (01) ==
LOC: RADXRMAIN 07:49
PROVIDERS: ATTEND Urology
DX: N20.0 Calculus of kidney (principal); Z98.890 Other specified postprocedural states
CPT/HCPCS: 74018

== ENCOUNTER 2018-09-20 06:15 | Day surgery (SDC) | payer OTHER ==
[2018-09-16 16:37] VITALS: BMI 29.5
--- NOTE | 2018-09-16 17:28 | P.GSHP ---
History of Present Illness H&P Date: 09/16/18 Chief Complaint: Left flank pain The patient is a 63-year-old white male with a history of urolithiasis who presents with a two-month history of left flank and left lower abdominal discomfort. A computed tomography scan shows a 13 mm left upper pole renal calculus. He also has bilateral renal cysts. Treatment options for the renal calculus include observation, extracorporeal shockwave lithotripsy (ESWL), and ureteroscopy with laser lithotripsy. The pros and cons of each approach were reviewed in detail, and he elected to undergo ESWL on 08/23/2018. He was subsequently hospitalized with Steinstrasse, which has persisted as multiple calculus fragments within the left proximal to mid ureter. He was offered the options of observation, repeat ESWL, and ureteroscopy with laser lithotripsy. He has elected to undergo repeat ESWL and comes for this reason. - Constitutional Constitutional: Denies chills, Denies fever - Genitourinary (Female) Genitourinary: Denies dysuria, Denies hematuria Past Medical History Past Medical History: Cancer, Hypertension Additional Past Medical History / Comment(s): KIDNEY STONES, TESTICULAR CANCER, resolving cough History of Any Multi-Drug Resistant Organisms: None Reported Past Surgical History: Hernia Repair Additional Past Surgical History / Comment(s): left testicle removed, recent lithotripsy Past Anesthesia/Blood Transfusion Reactions: No Reported Reaction Smoking Status: Never smoker - Past Family History Mother Family Medical History: Congestive Heart Failure (CHF) Father Family Medical History: Diabetes Mellitus, Hypertension Medications and Allergies Home Medications Medication Instructions Recorded Confirmed Type Aspirin [Adult Low Dose Aspirin EC] 81 mg PO DAILY 08/19/18 09/16/18 History Lisinopril-Hctz 10-12.5 mg 1 tab PO DAILY 08/19/18 09/16/18 History [Zestoretic 10-12.5] Tamsulosin [Flomax] 0.4 mg PO DAILY #30 cap 08/23/18 09/16/18 Rx HYDROcodone/APAP 5-325MG [[place] 1 - 2 tab PO Q4H PRN 08/25/18 09/16/18 History 5-325] Ondansetron Odt [Zofran Odt] 4 mg PO Q8HR PRN #10 tab 08/26/18 09/16/18 Rx Allergies Allergy/AdvReac Type Severity Reaction Status Date / Time No Known Allergies Allergy Verified 09/16/18 16:27 Surgical - Exam - General well developed, well nourished, no distress - Neck no masses, trachea midline - Respiratory normal respiratory effort, clear to auscultation - Cardiovascular Rhythm: regular Abnormal Heart Sounds: no systolic murmur, no diastolic murmur, no rub, no S3 Gallop, no S4 Gallop, no click, no other - Abdomen Abdomen: soft, non tender, no guarding, no rigid, no rebound - Psychiatric oriented to time, oriented to person, oriented to place, speech is normal, memory intact Assessment and Plan (1) Left ureteral stone Status: Acute Code(s): N20.1 - CALCULUS OF URETER SNOMED Code(s): 49428395 Plan: Left ESWL. The rationale for the procedure has been reviewed with the patient. He understands risks to include anesthesia and incomplete fragmentation of the calculus fragments. He is aware of the possible need for additional procedures.
[~2018-09-20 06:15] MED LIST changes: -GLYCOPYRROLATE 0.2 MG/ML 2 ML VIAL ONE; -KETAMINE 10 MG/ML 20 ML VIAL ONE; -LIDOCAINE 1% 20 ML VIAL (10MG/ML) FOR IV START INTRADERMA ONE; -LIDOCAINE 1% INJ 10MG/ML (20 ML MDV) ONE; -MIDAZOLAM 2 MG/2 ML VIAL ONE; -PROPOFOL 10 MG/ML 20 ML VIAL IV ONE; -fentaNYL (PF) 50 MCG/ML 2 ML AMP ONE
[2018-09-20] MEDS ORDERED: LIDOCAINE 1% 20 ML VIAL (10MG/ML) FOR IV START INTRADERMA ONE (07:02)
[2018-09-20 07:06] VITALS: TEMP 97.9
--- NOTE | 2018-09-20 07:15 | XR ---
EXAMINATION TYPE: XR KUB DATE OF EXAM: 09/20/2018 CLINICAL DATA: 63-year-old male kidney stones, [facility] COMPARISON: 08/26/2018 FINDINGS: Nonobstructive bowel gas pattern. Mild stool in the right-sided colon. There is new extensive Steinstrasse within the distal left ureter with 2 segments, one spanning 1.6 c m long and the second spanning 4.4 cm long. IMPRESSION: New extensive Steinstrasse in the distal left ureter with 2 segments, each spanning 4.4 cm and 1.6 cm .
[2018-09-20] MEDS ORDERED: fentaNYL (PF) 50 MCG/ML 2 ML AMP ONE (07:33)
[2018-09-20] MEDS ORDERED: MIDAZOLAM 2 MG/2 ML VIAL ONE (07:33)
[2018-09-20] MEDS ORDERED: PROPOFOL 10 MG/ML 20 ML VIAL IV ONE (07:33)
[2018-09-20] MEDS ORDERED: LACTATED RINGERS 1,000 ML IV ONE (07:40)
--- NOTE | 2018-09-20 08:28 | P.OP ---
Date of Procedure: 09/20/18 Preoperative Diagnosis: Left ureteral calculi Postoperative Diagnosis: Same Procedure(s) Performed: Left extracorporal shockwave lithotripsy (ESWL) Anesthesia: MAC Surgeon: Urbano Almanza Estimated Blood Loss (ml): 0 IV fluids (ml): 500 Pathology: none sent Condition: stable Disposition: PACU Indications for Procedure: The patient is a 63-year-old white male with a history of urolithiasis who presents with a two-month history of left flank and left lower abdominal discomfort. A computed tomography scan shows a 13 mm left upper pole renal calculus. He also has bilateral renal cysts. Treatment options for the renal calculus include observation, extracorporeal shockwave lithotripsy (ESWL), and ureteroscopy with laser lithotripsy. The pros and cons of each approach were reviewed in detail, and he elected to undergo ESWL on 08/23/2018. He was gates bsequently hospitalized with Steinstrasse, which persisted as multiple calculus fragments within the left proximal to mid ureter. He was offered the options of observation, repeat ESWL, and ureteroscopy with laser lithotripsy. He has elected to undergo repeat ESWL and comes for this reason. The preoperative KUB x-ray shows that the fragments have migrated to the distal ureter. Operative Findings: Probable fragmentation. Description of Procedure: The patient was taken to the operating room and placed on the Dornier Compact Delta II lithotripter in the supine position. The calculi were seen on biplanar fluoroscopy. Once the patient was properly positioned and sedated, lithotripsy was performed. The energy level was gradually increased per protocol, to an energy level of 6. A total of 3000 shocks were given at a rate of 80 shocks per minute. Fluoroscopy was utilized at a minimum to ensure proper positioning and determine the treatment status. The most distal fragments were initially treated, and the patient was then repositioned to treat the more proximal fragments located just distal to the iliac vessels. The appearance of the calculi appeared to change, suggesting fragmentation had occurred. The patient tolerated the procedure well was taken to the recovery room in stable condition. Instructions were given to strain the urine, and the patient will follow-up within one week.
[2018-09-20 09:07] VITALS: RESP 15
[2018-09-20 09:40] VITALS: BP 149/83; PULSE 71
== END 2018-09-20 09:10 | disposition home or self-care (01) ==
LOC: ORWHC2ENDO 06:15
PROVIDERS: ATTEND Urology
DX: N20.1 Calculus of ureter (principal); I10 Essential (primary) hypertension; Z85.47 Personal history of malignant neoplasm of testis; Z90.79 Acquired absence of other genital organ(s); Z79.82 Long term (current) use of aspirin; Z79.891 Long term (current) use of opiate analgesic; Z79.899 Other long term (current) drug therapy; Z83.3 Family history of diabetes mellitus; Z82.49 Family history of ischemic heart disease and other diseases of the circulatory system
CPT/HCPCS: 50590; 74018; J2250; J3010; J2704

== ENCOUNTER → 2018-10-25 | Outpatient (CLI) | payer OTHER ==
--- NOTE | 2018-10-25 18:13 | XR ---
KUB HISTORY: Calculus of ureter Frontal KUB submitted and correlated to prior exam 09/20/2018 The Steinstrasse phenomenon in the left hemipelvis has resolved in the interval. There is likely an o verlying artifact in the right hemipelvis of a button. Degenerative disc changes are present in the v isualized spine. IMPRESSION: Interval clearance of the distal left ureteral calculi.
== END | disposition home or self-care (01) ==
LOC: RADXRMAIN 13:24
PROVIDERS: ATTEND Urology
DX: N20.1 Calculus of ureter (principal)
CPT/HCPCS: 74018

== ENCOUNTER → 2020-05-15 | Outpatient (CLI) | payer OTHER ==
--- NOTE | 2020-05-15 17:01 | CT ---
EXAMINATION TYPE: CT iac w con DATE OF EXAM: 05/15/2020 COMPARISON: None HISTORY: tinnitus CT DLP: 150 mGycm Automated exposure control for dose reduction was used. CONTRAST: CT scan of the IACs is performed with IV Contrast, patient injected with 100 mL of Isovue 300. FINDINGS: The external auditory canals are patent bilaterally. Mastoid air cells show no evidence of abnormal opacification bilaterally. The middle ear ossicles are symmetric and unremarkable. There is no evidence of suspicious surrounding soft tissue density to suggest cholesteatoma. The scutum is preserved bilaterally. The cochlea and the semicircular canals are symmetric and unremarkable. Ves tibular aqueduct and internal carotid canal appear unremarkable. Temporomandibular joints are mainta ined bilaterally. There is abnormal soft tissue density within the right maxillary sinus, lobular so ft tissue density within the left maxillary sinus and there is otilia bullosa present on the left. In ternal auditory canals show symmetric appearance. No cerebellopontine angle mass is evident. IMPRESSION: Sinus disease.
--- NOTE | 2020-05-16 08:24 | US ---
EXAMINATION TYPE: US carotid duplex BILAT DATE OF EXAM: 05/15/2020 COMPARISON: NONE CLINICAL HISTORY: H93.A2 Left pulsatile tinnitus. Pt states tinnitus EXAM MEASUREMENTS: RIGHT: Peak Systolic Velocity (PSV) cm/sec ----- Right CCA: 106 ----- Right ICA: 99.2 ----- Right ECA: 90.4 ICA/CCA ratio: 0.9 RIGHT: End Diastole cm/sec ----- Right CCA: 30.6 ----- Right ICA: 33.3 ----- Right ECA: 15.6 LEFT: Peak Systolic Velocity (PSV) cm/sec ----- Left CCA: 98.5 ----- Left ICA: 105 ----- Left ECA: 115 ICA/CCA ratio: 1.1 LEFT: End Diastole cm/sec ----- Left CCA: 25.8 ----- Left ICA: 35.3 ----- Left ECA: 21.1 VERTEBRALS (direction of flow): Right Vertebral: Antegrade Left Vertebral: Antegrade Rhythm: Normal No significant stenosis seen, Incidental finding left thyroid nodule IMPRESSION: 1. Mild atherosclerotic changes. No significant hemodynamic stenosis as visualized. 2. Incidental note is made of a 1 cm left thyroid nodule. Criteria for Assigning % of Stenosis / Diameter reduction (Estimation based on the indirect measurements of the internal carotid artery velocities (ICA PSV). 1. Normal (no stenosis)=ICA PSV < 125 cm/s: ratio < 2.0: ICA EDV<40 cm/s. 2. Less than 50% stenosis=ICA PSV < 125 cm/s: ratio < 2.0: ICA EDV<40 cm/s. 3. 50 to 69% stenosis=ICA PSV of 125 to 230 cm/s: ration 2.0 ? 4.0: ICA EDV 40-100 cm/s. 4. Greater than 70% stenosis to near occlusion= ICA PSV > 230 cm/s: ratio > 4.0: ICA EDV > 100 cm/s. 5. Near occlusion= ICA PSV velocities may be low or undetectable: variable ratio and ICA EDV. 6. Total occlusion=unable to detect flow.
== END | disposition home or self-care (01) ==
LOC: RADCTMAIN 15:16
PROVIDERS: ATTEND Otolaryngology
DX: I65.23 Occlusion and stenosis of bilateral carotid arteries (principal); H93.A2 Pulsatile tinnitus, left ear
CPT/HCPCS: 82565; 84520; 93880; 70481; 36415; Q9967

== ENCOUNTER → 2020-06-06 | Outpatient (CLI) | payer OTHER ==
--- NOTE | 2020-06-06 16:01 | US ---
EXAMINATION TYPE: US thyroid st tissue head/neck DATE OF EXAM: 06/06/2020 COMPARISON: Correlation US Carotid 05/15/20 CLINICAL HISTORY: 65-year-old male E04.1 thyroid Nodule. TECHNIQUE: Multiple sonographic images of the thyroid gland are obtained. FINDINGS: GLAND SIZE: Right Lobe: 5.3 x 1.9 x 1.7 cm Overall Parenchyma: homogenous Left Lobe: 5.5 x 1.8 x 1.7 cm Overall Parenchyma: homogeneous Isthmus Thickness: 0.3 cm NODULES RIGHT: # of nodules measured on right: 1 1. 1.0 X 0.9 x 0.7 cm lower pole solid or almost completely solid, hypoechoic nodule, which is wide r than tall, with smooth margins, without echogenic foci. Prior size: No Previous A couple other subcentimeter nodules measuring up to 3 mm, suspected colloid cysts are noted. LEFT: # of nodules measured on left: 1 1. 1.1 X 1.0 x 0.8 cm mid pole solid or almost completely solid, hypoechoic nodule, which is wider than tall, with smooth margins, without echogenic foci. Prior size: No Previous Other sub centimeter cyst seen laterally ISTHMUS: # of nodules measured in the isthmus: 1 1. 0.8 X 0.6 x 0.4 cm solid or almost completely solid, hypoechoic nodule, which is wider than tall , with smooth margins, without echogenic foci. Prior size: No Previous Prominent but nonenlarged right sided lymph node = 1.1 x 1.0 x 0.4 cm (1.0 cm short axis) IMPRESSION: 1. A TR4 solid nodule, one on each side, measuring 1.0 cm on the right and 1.1 cm on the left. These can be followed and biopsied if they reach 1.5 cm in size. 2. A smaller 8 mm solid nodule in the thyroid isthmus.
== END ==
LOC: RADUSWWP 13:31
PROVIDERS: ATTEND Otolaryngology
DX: E04.2 Nontoxic multinodular goiter (principal)
CPT/HCPCS: 76536

== ENCOUNTER → 2023-07-24 | Outpatient (CLI) | payer MEDICARE ==
--- NOTE | 2023-07-24 12:27 | MR ---
EXAMINATION TYPE: MR Prostate wo/w con DATE OF EXAM: 07/24/2023 6:57 AM COMPARISON: None. CLINICAL INDICATION:Male, 68 years old with history of C61 MALIGNANT NEOPLASM OF PROSTATE; Elevated P SA, Prostate biopsy showing adenocarcinoma left lateral mid gland TECHNIQUE: Multi-planar, multi-sequence imaging of the pelvis is performed prior to and following the uncomplicated administration of bolus intravenous gadolinium. CONTRAST: 10 Gadavist Interpretive Criteria: PI-RADS v2.1 SERUM PSA: 9.01 on 07/09/2023. SURGICAL PATHOLOGY: 06/25/2021 FINDINGS: Prostatic dimensions: 5.1 x 5.2 x 3.4 cm. "Bullet" Volume:59.01 (PSA density=0.15 ng/mL/mL) CENTRAL GLAND (Central and Transition Zones/CZ+TZ): Multiple bilateral, heterogenous appearing hypertrophic stromal nodules, without suspicious lesion. (PI-RADS 2) PERIPHERAL ZONE (PZ): Limit evaluation of the peripheral zone secondary gas within the rectum. Left posterior lateral mid g land 6 mm focus of low T2 signal without definitive evidence of restricted diffusion. (PI-RADS 3) SEMINAL VESICLES (SV): Diffusely collapse or atrophic, bilaterally. PERIPROSTATIC TISSUES: Unremarkable. LYMPH NODES: No enlarged pelvic lymph node. REMAINING PELVIS: Bladder wall is within normal limits given distention. No abnormal free or organized intrapelvic fluid collection. No pathologic bowel dilation or mural thickening. OSSEOUS STRUCTURES: No suspicious osseous abnormality. IMPRESSION: 1. Overall the prostate gland is not significantly changed from 05/17/2022 on T2 signal sequences. Per ipheral zone is slightly limited due to air in the rectum. 2. Left posterior lateral mid gland PI-RADS 3 based on T2-weighted sequences is unchanged. 3. Moderate BPH, estimated gland volume 59.01 mL. 4. No suspicious osseous lesion. No lymphadenopathy. No evidence of prostate adenocarcinoma involving the periprostatic tissues.
== END | disposition home or self-care (01) ==
LOC: RADMRIMAIN 05:55
PROVIDERS: ATTEND Urology
DX: C61 Malignant neoplasm of prostate (principal); N40.0 Benign prostatic hyperplasia without lower urinary tract symptoms; R97.20 Elevated prostate specific antigen [PSA]
CPT/HCPCS: 72197; A9585

== ENCOUNTER → 2023-12-24 | Outpatient (CLI) | payer MEDICARE ==
[2023-12-24 15:20] LABS: BUN/Creat Ratio 20.09 Ratio (12.00-20.00); Blood Urea Nitrogen 22.1 mg/dL (9.0-27.0); Chloride 106 mmol/L (96-109); Glucose 105 mg/dL (70-110); Potassium 4.7 mmol/L (3.5-5.5); Sodium 140 mmol/L (135-145)
[2023-12-24 15:21] LABS: Calcium 9.6 mg/dL (8.7-10.3)
[2023-12-24 15:36] LABS: HCT 44.4 % (39.6-50.0); HGB 15.3 g/dL (13.0-17.0); MCH 30.1 pg (27.0-32.0); MCHC 34.5 g/dL (32.0-37.0); MCV 87.4 FL (80.0-97.0); Mean Platelet Volume 10.7 FL (9.5-12.2); NRBC Per 100 WBC 0 X 10*3/uL (0.00-0.01); Platelet Count 253 X 10*3/uL (140-440); RBC 5.08 X 10*6/uL (4.40-5.60); RDW 12.5 % (11.5-14.5); WBC 5.86 X 10*3/uL (4.50-10.00)
== END | disposition home or self-care (01) ==
LOC: LABPAT 10:43
PROVIDERS: ATTEND Urology
DX: Z01.818 Encounter for other preprocedural examination
CPT/HCPCS: 80048; 85027; 86850; 86900; 86901

== ENCOUNTER 2024-01-01 10:07 | Day surgery (SDC) | payer MEDICARE ==
--- NOTE | 2023-12-31 21:34 | P.HPIHPCON ---
History of Present Illness H&P Date: 12/31/23 Chief Complaint: Prostate cancer This is a 68-year-old male with history of [place] 7(3+4) prostate cancer. Option of a robotic radical prostatectomy versus radiation therapy were discussed with him in details. Alternative were also discussed. He agreed to proceed with a robotic radical prostatectomy, aware the risk which includes but not limited to bleeding, infection, urinary incontinence, erectile dysfunction, injury to nearby organs which includes but not limited to bowel, rectum and bladder. Discussed also risk of cancer recurrence and the need for additional treatment. Discussed also given his history of previous radiation therapy to the retroperitoneal and pelvic nodes potential if there is no significant scarring I may not be able to perform lymph node dissection. He understood all the risk and agreed to proceed Consent for Procedure: I have explained the operation/procedure to the patient, including the risks, benefits, side effects, alternative therapies (including not receiving the proposed treatment or service), the likelihood of the patient achieving his/her goals, and potential recuperation problems for the procedure/sedation/analgesia, as well as any blood products, if indicated. I also explained to the patient the risks, benefits and side effects of the alternatives, as well as the risks related to not receiving the proposed procedure, care, treatment, or services. Past Medical History Past Medical History: Cancer, Hypertension Additional Past Medical History / Comment(s): KIDNEY STONES, TESTICULAR CANCER, new dx. prostate cancer History of Any Multi-Drug Resistant Organisms: None Reported Past Surgical History: Hernia Repair Additional Past Surgical History / Comment(s): left testicle removed, recent lithotripsy Past Anesthesia/Blood Transfusion Reactions: No Reported Reaction Smoking Status: Never smoker - Past Family History Mother Family Medical History: Congestive Heart Failure (CHF) Father Family Medical History: Diabetes Mellitus, Hypertension Medications and Allergies Home Medications Medication Instructions Recorded Confirmed Type Lisinopril-Hctz 20-25 mg 1 tab PO DAILY 12/25/23 12/25/23 History [Zestoretic 20-25] Magnesium 200 mg PO DAILY 12/25/23 12/25/23 History Multivitamins, Thera [Multivitamin 1 tab PO DAILY 12/25/23 12/25/23 History (formulary)] Allergies Allergy/AdvReac Type Severity Reaction Status Date / Time No Known Allergies Allergy Verified 12/25/23 14:22 Surgical - Exam - General no distress, no pain - Eyes normal ocular movement, no pale - Abdomen Abdomen: soft, non tender, no distended Assessment and Plan Assessment: OR for robotic radical prostatectomy, with bilateral pelvic lymph node dissection
[~2024-01-01 10:07] MED LIST changes: -LACTATED RINGERS 1,000 ML IV SCH; +LIDOCAINE 1% (10MG/ML) FOR IV START INTRADERMA PRN; -Pre Op ABX Message 1 EACH MISC MISCELLANE ONE
[2024-01-01] MEDS: IV FLUID CONTINUATION 1,000 ML IV ONE ×5 (10:24→17:38)
[2024-01-01] MEDS: ONDANSETRON 4 MG/2 ML VIAL IVP ONE (10:57)
[2024-01-01] MEDS: DEXAMETHASONE SOD PHOSPHATE 4 MG/ML 1 ML VIAL IV ONE (10:57)
[2024-01-01] MEDS: LACTATED RINGERS 1,000 ML IV SCH (10:58)
[2024-01-01] MEDS: MIDAZOLAM 2 MG/2 ML VIAL IV ONE (11:07)
--- NOTE | 2024-01-01 11:17 | P.ANPRN ---
Procedure Note - Anesthesia - Nerve Block Performed Bilateral Erector Spinae Single Time Out Performed: Yes Date of Procedure: 01/01/24 Procedure Start Time: 11:10 Procedure Stop Time: 11:18 Location of Patient: PreOp Indication: Acute Post-Operative Pain, Analgesia, Requested by Surgeon Sedation Type: Sedate with meaningful contact maintained Preparation: Sterile Prep Position: Prone Catheter: None Needle Types: Pajunk Needle Gauge: 21 Ultrasound used to visualize needle placement: Yes Ultrasound used to observe medication spread: Yes Injectate: 0.5% Ropivacaine (see comment for volume) (Ropiv 20ml+Decadron 4mg--Each side. Needle level T11.) Blood Aspirated: No Pain Paresthesia on Injection Noted: No Resistance on Injection: Normal Image Stored and Saved: Yes Events: Uneventful and Well Tolerated
[2024-01-01] MEDS: HEPARIN SODIUM,PORCINE 5,000 UNIT/ML 1 ML VIAL SQ STA (11:35)
[2024-01-01] MEDS ORDERED: NEOSTIGMINE 1 MG/ML 10 ML VIAL ONE (12:15)
[2024-01-01] MEDS ORDERED: fentaNYL (PF) 50 MCG/ML 2 ML AMP ONE (12:15)
[2024-01-01] MEDS ORDERED: HYDROmorphone (PF) 1 MG/ML ONE (12:15)
[2024-01-01] MEDS ORDERED: MIDAZOLAM 2 MG/2 ML VIAL ONE (12:15)
[2024-01-01] MEDS ORDERED: LIDOCAINE 1% INJ 10MG/ML (20 ML MDV) ONE (12:15)
[2024-01-01] MEDS ORDERED: PROPOFOL 10 MG/ML 20 ML VIAL IV ONE (12:15)
[2024-01-01] MEDS ORDERED: GLYCOPYRROLATE 0.2 MG/ML 2 ML VIAL ONE (12:15)
[2024-01-01] MEDS ORDERED: SUCCINYLCHOLINE CHLORIDE 200 MG/10 ML VIAL IV ONE (12:15)
[2024-01-01] MEDS ORDERED: ROPIVACAINE 5 MG/ML 30 ML VIAL ONE (12:15)
[2024-01-01] MEDS ORDERED: ROCURONIUM 10 MG/ML (5 ML VIAL) IV ONE (12:15)
[2024-01-01] MEDS ORDERED: DEXAMETHASONE SOD PHOSPHATE 4 MG/ML 1 ML VIAL ONE (12:15)
[2024-01-01] MEDS: BUPIVACAINE (PF) 0.25% 30 ML VIAL SQ ONE ×2 (12:20→16:00)
[2024-01-01] MEDS: HYDROmorphone 0.5 MG/0.5 ML SYRINGE IVP PRN (16:25)
--- NOTE | 2024-01-01 17:21 | P.OP ---
Date of Procedure: 01/01/24 Preoperative Diagnosis: Prostate cancer Postoperative Diagnosis: Same Procedure(s) Performed: Robotic assisted laparoscopic radical prostatectomy with bilateral pelvic lymph node dissection Implants: None Anesthesia: JOSE Surgeon: Yogi Hawley Estimated Blood Loss (ml): 100 Pathology: other (Prostate, bilateral seminal vesicle, bilateral pelvic lymph nodes, left base margin, apical margin) Condition: stable Disposition: PACU Indications for Procedure: This is a 68-year-old male with history of [place] 7(3+4) prostate cancer. Option of a robotic radical prostatectomy versus radiation therapy were discussed with him in details. Alternative were also discussed. He agreed to proceed with a robotic radical prostatectomy, aware the risk which includes but not limited to bleeding, infection, urinary incontinence, erectile dysfunction, injury to nearby organs which includes but not limited to bowel, rectum and bladder. Discussed also risk of cancer recurrence and the need for additional treatment. Discussed also given his history of previous radiation therapy to the retroperitoneal and pelvic nodes potential if there is no significant scarring I may not be able to perform lymph node dissection. He understood all the risk and agreed to proceed Operative Findings: Significant fibrosis of the prostate along the left side Description of Procedure: After preoperative antibiotics were started, the patient was taken to the operating room. Anesthesia was induced and the patient was placed in a supine position, with adequate padding of the pressure points, shoulders, back, legs and arms. He was then prepped and draped in the standard fashion. A critical pause was performed using two patient identifiers. A 16F payne catheter was placed to gravity drainage. A pneumo-peritoneum was c reated with placement of a Veress needle to 20 mm Hg without complication, and a 8 Fr trocar was placed above the umbillicus. Under direct vision a 8mm robotic ports was placed lateral to each rectus slightly below the camera port. The left iliac fossa 8mm port was placed. The right conference assistant right iliac fossa 12mm port and right paramedian 5mm portwere placed. After the patient was placed in the trendelenberg position, the robot was then docked to the 8mm robotic ports and then each robotic arm and tower was checked in relation to the patient's legs and hands to avoid inadvertent compression. The peritoneal cavity was inspected. An inverted U-shaped incision began laterally to the left medial umbilical ligament and extended high across the midline to the right umbilical ligament. The limbs of the "U" extended to the level of the vasa on both sides. We next developed the preperitoneal space and the space of Retzius. Cautery was used to dissected the bladder away from the prostate. After the anterior bladder neck was incised and the bladder entered the the posterior bladder neck was exposed and the ureteral orifces identified. The posterior bladder neck was then incised and dissected away from the prostate. The vas and the seminal vesicles were now exposed and dissected to their insertions into the prostate and were not spared. The posterior layer of the Denonvillier's fascia was incised to enter diane the plane between prostate and perirectal fat. Along the left side of the prostate it was more adherent to the perirectal fat compared to the right Each lateral pedicle was controlled with vessel sealer. Partial nerve preservation was performed on the left, complete nerve preservation was performed on the right. Along the left side there was significant fibrosis on performing the nerve preservation, given this finding a left base margin was sent for frozen to rule out malignancy as the cause of the fibrosis it came back negative for malignancy. Attention was then carried to the apical dissection at this time the puboprostatic ligament was incised where it inserted into the apex of the prostate and a plane between urethra and dorsal venous complex developed to expose the anterior urethral surface. The anterior wall of the urethra was transected with the cut setting a few millimeters distal to the apex of the prostate. The dorsal vein was ligated using 3-0 V lock. Again along the left apical margin there was similar finding of the fibrotic tissue this was excised and sent to pathology as a permanent section bilateral obturator and external iliac lymph node packets were carefully dissected after careful visualization of the hypogastric artery and obturator nerve. There was careful attention paid to hemostasis with judicious use of cautery. Along the left pelvic nodes there was minimal lymphatic tissue which was anticipated given previous history of radiation to the side The urethrovesical anastomosis was performed . the posterior denovillers was reapproximated using 3-0 V lock. A 6 and 6 inch 3-0 V-Lock suture was used to anastomose the urethra and bladder, starting at the 6:00 posterior position. Mucosa was secured in every stitch, to ensure a mucosa to mucosa anastomosis. The stitch was regularly cinched and the anastomosis tightened. Care was taken to not violate the ureteral orifices. The Payne catheter was advanced, the bladder filled, and the anastomosis was tested, as described above. Anastomsis was watertight at 200 mL The robot was undocked, along the 8 mm midline port incision was extended, this was further carried down along the umbilicus. At this point attention was carried through the umbilical hernia, the umbilical hernia sac was excised, the fascia was mobilized bilaterally. The periumbilical fascia was closed with 1-0-PDS suture in running fashion. All ports were closed with a subcuticular 4-0 monocryl and Dermabond. Sponge, instrument, and needle counts were correct at the end of the case x2. All specimens including prostate and lymph nodes were sent to pathology for diagnosis and will be available in a week. The patient tolerated the surgery well and without complication. He awoke without difficulty and was taken to the recovery room in stable condition
[2024-01-01] MEDS: droPERidol 5 MG/2 ML VIAL IVP ONE (17:34)
[2024-01-01] MEDS ORDERED: HYDROmorphone 1 MG/ML 1 ML SYRINGE IVP PRN (17:54)
[2024-01-01] MEDS ORDERED: ONDANSETRON 4 MG/2 ML VIAL IVP PRN (17:54)
[2024-01-01] MEDS ORDERED: HYDROcodone/APAP 5-325MG 1 EACH TAB PO PRN (17:56)
[2024-01-01] MEDS: KETOROLAC 15 MG/ML 1 ML VIAL IVP SCH (18:30)
[2024-01-01] MEDS: DEXTROSE 5%-0.45% NACL 1,000 ML IV SCH (18:30)
[2024-01-01 22:41] VITALS: RESP 17
[2024-01-01] MEDS: HEPARIN SODIUM,PORCINE 5,000 UNIT/ML 1 ML VIAL SQ SCH (23:46)
[2024-01-02] MEDS: LISINOPRIL-HCTZ 20-25 MG 1 EACH TAB PO SCH (08:19)
[2024-01-02 08:38] VITALS: BP 181/80; PULSE 82; TEMP 98.3
--- NOTE | 2024-01-02 08:50 | P.DS ---
Providers Attending physician: Yogi Hawley MD Primary care physician: [facility] Course: This is a 68-year-old female with history of prostate cancer. Underwent a robotic radical prostatectomy on December 31, please see op note dated December 31 for surgery details. Patient was admitted to the hospital postoperatively. Patient was discharged home on postop day #1, at time of discharge patient was tolerating a diet, ambulating, pain was controlled Plan - Discharge Summary Discharge Rx Participant: No New Discharge Prescriptions: New Ciprofloxacin HCl [Cipro] 500 mg PO BID 3 Days #6 tab Ketorolac [Toradol] 10 mg PO Q6HR PRN #15 tab PRN Reason: Pain No Action Lisinopril-Hctz 20-25 mg [Zestoretic 20-25] 1 tab PO DAILY Multivitamins, Thera [Multivitamin (formulary)] 1 tab PO DAILY Magnesium 200 mg PO DAILY Discharge Medication List Lisinopril-Hctz 20-25 mg [Zestoretic 20-25] 1 tab PO DAILY 12/25/23 [History] Magnesium 200 mg PO DAILY 12/25/23 [History] Multivitamins, Thera [Multivitamin (formulary)] 1 tab PO DAILY 12/25/23 [History] Ciprofloxacin HCl [Cipro] 500 mg PO BID 3 Days #6 tab 01/02/24 [Rx] Ketorolac [Toradol] 10 mg PO Q6HR PRN #15 tab 01/02/24 [Rx] Activity/Diet/Wound Care/Special Instructions: It is normal to have blood in the urine You may shower, no baths No heavy lifting or straining for 4 weeks Start your antibiotics 1 day prior to your follow-up appointment
== END 2024-01-02 12:59 ==
LOC: OR 10:07 → 4SSUR 16:58 → OR 01-02 12:59
PROVIDERS: ATTEND Urology
DX: C61 Malignant neoplasm of prostate
CPT/HCPCS: 38571; 55866; 64999; S2900